=== PATIENT | male | born 1950 | race Caucasian/White ===

== ENCOUNTER → 2018-01-14 | Outpatient (CLI) | payer OTHER ==
[~2018-01-14] VITALS: Ht 175.3 cm; Wt 90.7 kg
[~2018-01-14] MED LIST: AMLODIPINE BESYL5 M1 PO; ASPIRIN81 M2 PO; CELLCEPT 250 M250 MG PO; COREG6.25 MG PO; ENVARSUS XR1 MG PO; HUMALOG100 UNIT/2 SUBQ; LANTUS100 UNIT/M SUBQ; PLAVIX 75 MG TA75 M1 PO; XANAX 0.25 MG0.25 MG PO
[2018-01-14 12:17] VITALS: BP 155/86
[2018-01-14 15:00] VITALS: BP 133/75
[2018-01-14 15:21] VITALS: BP 136/71
[2018-01-14 15:33] VITALS: BP 136/72
--- NOTE | 2018-01-21 09:47 | OP ---
[address] [address] OPERATIVE REPORT Name: JOE BARRETO Room: [facility]#: [id number] Admission: 01/14/18 Attend Phys: Rhoda Flores Discharge: Date of : 48 Report #: [id number] THIS REPORT FOR: //name// CC: Rui Sanders DATE OF SERVICE: 01/14/2018 PREOPERATIVE DIAGNOSES: Peripheral vascular disease, gangrene, diabetic foot ulcer, right lower extremity. POSTOPERATIVE DIAGNOSES: Peripheral vascular disease, gangrene, diabetic foot ulcer, right lower extremity. SURGEON: Galen Sandres DO. OFFICER CAPTAIN: None. PROCEDURE: 1. Ultrasound-guided access, left common femoral artery. 2. Aortogram with CO2. 3. Right lower extremity angiogram with CO2. 4. Right lower extremity angiogram catheter position third order with dilute 20% contrast. 5. Angioplasty of popliteal and posterior tibial artery with Bard VascuTrak 3 x 100 mm angioplasty balloon and Bard 6 x 40 mm Ultraverse angioplasty balloon. 6. Selective angiography of the right anterior tibial artery. 7. Limited angiogram, left common femoral artery. 8. Angio-Seal closure, left common femoral artery. ESTIMATED BLOOD LOSS: Minimal. SPECIMEN: None. COMPLICATIONS: None. CONDITION: Stable. ANESTHESIA: Moderate sedation. INDICATIONS FOR THE PROCEDURE AND CONSENT: The patient is a 67-year-old male who presented to [facility] with a diabetic foot ulcer. This rapidly progressed and he required ultimately a transmetatarsal amputation. He had abnormal noncompressible ABIs in the setting of a previous renal transplant. He did not wish to risk significant contrast exposure and I did feel that he had possible significant tibial and small [place] [address] OPERATIVE REPORT Name: JOE BARRETO Room: [facility]#: [id number] Admission: 01/14/18 Attend Phys: Rhoda Flores Discharge: Date of : 48 Report #: [id number] Recommendation for right lower extremity angiogram with CO2 and minimal contrast was discussed. After risks and benefits were discussed the patient wished to proceed, was consented and scheduled. PROCEDURE IN DETAIL: After timeout was performed, the patient was placed in supine position with sterile prep and drape of the bilateral groins and bilateral thighs. Ultrasound was utilized to identify the left common femoral artery and Seldinger technique used to place a 6-Turkish sheath. Glidewire Advantage and UF catheter were advanced into the infrarenal aorta and a CO2 aortogram was performed. This demonstrated the aorta, bilateral iliacs, internal and external iliacs to be widely patent as visualized with CO2. This also demonstrated the right iliac artery to be the origin of the renal transplant and appeared grossly patent without concern. I then attempted to perform bilateral lower extremity CO2 angiogram and was able to visualize the common femoral and bilateral SFAs well down to the level of the knee, which appeared widely patent without flow limitation. Below the knee, I was unable to visualize the tibial vessels well and advanced the Glidewire Advantage and Seeker catheter into the right distal superficial femoral artery and performed dilute contrast injections. This demonstrated the popliteal artery to have a severe stenosis as did the mid posterior tibial vessel. The peroneal artery was patent for several centimeters and then occluded. The anterior tibial vessel was open almost to the ankle and then filled the dorsalis pedis through collaterals. I then heparinized the patient with 6000 units of heparin with intention to treat. I advanced a 6-Turkish up and over Darius sheath into the proximal superficial femoral artery and advanced the Glidewire Advantage into the origin of the posterior tibial vessel and advanced the Seeker catheter into the origin. I then exchanged for an 0.014 wire, which was able to be negotiated in the distal posterior tibial vessel and then exchanged for the 3 mm VascuTrak angioplasty balloon that was advanced under fluoroscopic guidance and angioplasty performed and held for 3 minutes. An additional inflation was performed up to the origin of the posterior tibial vessel and at the level of severe popliteal stenosis to assist with size gauging. Repeat angiography demonstrated the posterior tibial vessel to be widely patent without flow limitation, dissection or concern. I then obtained the Seeker catheter and attempted to negotiate into the anterior tibial vessel. I was then able do this with the 0.014 wire and exchanged for the 0.035 Glidewire Advantage and was able to get into the origin of the anterior tibial vessel to perform more direct angiography. This demonstrated the above findings of the distal anterior tibial vessel collateralizing on to the dorsalis pedis. I attempted to advance the wire beyond this into the distal anterior tibial vessel. This did not advance easily and appeared to be chronically occluded. I did not feel that there was additional benefit to trying to open this distal vessel, providing better inflow to these collaterals was likely more beneficial. I then exchanged for the [address] [address] OPERATIVE REPORT Name: JOE BARRETO Room: [facility]#: [id number] Admission: 01/14/18 Attend Phys: Rhoda Flores Discharge: Date of : 48 Report #: [id number] Ultraverse balloon to address the popliteal stenosis and under fluoroscopic guidance did plain balloon angioplasty of this area. Repeat angiography demonstrated excellent radiographic result without dissection or concern. I did not feel that additional drug-coated balloon angioplasty or stenting was appropriate in this young patient. Being satisfied with the result and wishing to limit any additional contrast exposure, I retracted the sheath in the left external iliac artery and performed a limited angiogram, which demonstrated this to be appropriate for Angio-Seal closure and then I placed a 6-Turkish Angio-Seal in a standard fashion. Pressure was held for hemostasis. The patient tolerated the procedure well. Lap, needle, and instrument counts were correct. <ELECTRONICALLY SIGNED> By: Galen Sanders DO 01/21/18 [id number] Sanders DO /nt
== END ==
LOC: M.INT 11:35
DX: E11.621 Type 2 diabetes mellitus with foot ulcer (principal); E13.52 Other specified diabetes mellitus with diabetic peripheral angiopathy with gangrene; I70.238 Atherosclerosis of native arteries of right leg with ulceration of other part of lower leg; I10 Essential (primary) hypertension; E78.4 Other hyperlipidemia; Z94.0 Kidney transplant status; Z89.9 Acquired absence of limb, unspecified